=== PATIENT | female | born 1945 | race Hispanic/Latino ===

== ENCOUNTER 2018-06-27 18:52 | Observation (INO) | payer MEDICARE ==
[~2018-06-27] VITALS: Ht 149.9 cm; Wt 73.9 kg
[~2018-06-27 18:52] MED LIST: METFORMIN HCL500 M2 PO; PREVACHOL PO; SYNTHROID137 MCG PO; ZESTRIL20 MG PO
[2018-06-27] MEDS ORDERED: ASPIRIN 81 MG CHEW TAB PO ONE (19:15)
[2018-06-27 20:04] LABS: BASOPHILS % 0.4 % (0.0-1.0); EOSINOPHILS # (AUTO) 0.2 (0.0-0.4); HEMATOCRIT 32.7 % (34.2-44.1); HEMOGLOBIN 10.6 g/dL (12.0-16.0); LYMPHOCYTES # (AUTO) 2.7 (1.0-3.2); LYMPHOCYTES % 35.6 % (18.0-39.1); MEAN CORPUSCULAR HEMOGLOBIN 31.2 pg (28-32); MEAN CORPUSCULAR HGB CONC 32.4 g/dL (31-35); MEAN CORPUSCULAR VOLUME 96.2 fL (81-99); MONOCYTES # (AUTO) 0.6 (0.2-0.8); MONOCYTES % 8.5 % (4.4-11.3); NEUTROPHILS % 53.2 % (38.7-80.0); PLATELET COUNT 235 x10e3/uL (140-360); RED CELL DISTRIBUTION WIDTH 12.6 % (11.7-14.4)
[2018-06-27 20:09] LABS: INR 0.87; PROTHROMBIN TIME 12.6 seconds (11.9-14.5)
[2018-06-27 20:10] LABS: PARTIAL THROMBOPLASTIN TIME 31.3 seconds (23.8-35.5)
[2018-06-27 20:21] LABS: ALBUMIN 4.1 g/dL (3.5-5.0); ALBUMIN/GLOBULIN RATIO 1.1 (0.8-2.0); ANION GAP 17.6 mmol/L (8-16); CALCIUM 9.6 mg/dL (8.4-10.2); CREATININE, SERUM 2.08 mg/dL (0.57-1.11); MAGNESIUM 2.2 MG/DL (1.3-2.1); POTASSIUM 4.6 mmol/L (3.5-5.1)
--- NOTE | 2018-06-27 20:27 | Diagnostic Imaging Report ---
EXAM: CHEST SINGLE (PORTABLE), AP 1 view INDICATION: Chest pain, left chest and shoulder COMPARISON: PA and lateral view the chest December 07, 2015 FINDINGS: LINES/TUBES: None LUNGS: No consolidations or edema. PLEURA: No effusions or pneumothorax. HEART AND MEDIASTINUM: Normal size and contour. BONES AND SOFT TISSUES: No acute findings. IMPRESSION: No acute thoracic abnormality. Signed by: Dr. Day Willis M.D. on 06/27/2018 8:24 PM
[2018-06-27 20:44] LABS: CREATINE KINASE MB 2.5 ng/mL (0-5.0); THYROID STIMULATING HORMONE 0.773 uIU/mL (0.350-4.940)
[2018-06-27 20:52] LABS: CLARITY,URINE CLEAR (CLEAR); COLOR,URINE YELLOW (YELLOW)
[2018-06-27 20:53] LABS: BILIRUBIN,URINE NEGATIVE (NEGATIVE); KETONES,URINE NEGATIVE (NEGATIVE); LEUKOCYTE ESTERASE ,URINE NEGATIVE (NEGATIVE); NITRITE,URINE NEGATIVE (NEGATIVE); PROTEIN,URINE DIPSTICK NEGATIVE (NEGATIVE); URINE UROBILINOGEN 0.2 mg/dL (0.2 - 1)
[2018-06-27 20:58] LABS: RBC,URINE 0-5 /HPF (0-5); WBC,URINE (MAN) 0-5 /HPF (0-5)
[2018-06-27 20:59] LABS: BACTERIA,URINE FEW /HPF; EPITHELIAL CELLS,URINE FEW /LPF
[2018-06-27] MEDS ORDERED: ONDANSETRON HCL INJ 2 MG/ML VIAL IV PRN (23:30)
[2018-06-27] MEDS ORDERED: MORPHINE SULFATE 2 MG/ML SYR IV PRN (23:30)
[2018-06-27] MEDS ORDERED: NITROGLYCERIN 0.4 MG SUBL SL PRN (23:30)
[2018-06-27] MEDS ORDERED: METOPROLOL TARTRATE 25 MG TAB PO ONE (23:30)
[2018-06-27] MEDS ORDERED: DEXTROSE 50% SYRINGE 50 ML IV PRN (23:45)
[2018-06-28] MEDS ORDERED: FINASTERIDE5 MG PO (03:12)
[2018-06-28] MEDS ORDERED: SYNTHROID112 MCG PO (03:12)
[2018-06-28] MEDS ORDERED: OMEPRAZOLE40 MG PO (03:12)
[2018-06-28] MEDS ORDERED: LISINOPRIL20 MG PO (03:12)
[2018-06-28] MEDS ORDERED: ESCITALOPRAM OXA5 MG PO (03:12)
[2018-06-28] MEDS ORDERED: PRAVASTATIN SOD20 MG PO (03:12)
[2018-06-28] MEDS ORDERED: JANUVIA25 MG PO (03:12)
[2018-06-28 03:26] LABS: BASOPHILS % 0.4 % (0.0-1.0); EOSINOPHILS # (AUTO) 0.2 (0.0-0.4); EOSINOPHILS % 2.2 % (0.0-6.0); HEMATOCRIT 30.5 % (34.2-44.1); HEMOGLOBIN 9.8 g/dL (12.0-16.0); LYMPHOCYTES # (AUTO) 3.5 (1.0-3.2); LYMPHOCYTES % 42.6 % (18.0-39.1); MEAN CORPUSCULAR HEMOGLOBIN 31.1 pg (28-32); MEAN CORPUSCULAR HGB CONC 32.1 g/dL (31-35); MEAN CORPUSCULAR VOLUME 96.8 fL (81-99); MONOCYTES # (AUTO) 0.7 (0.2-0.8); MONOCYTES % 8.4 % (4.4-11.3); NEUTROPHILS # (AUTO) 3.8 (2.1-6.9); NEUTROPHILS % 46.2 % (38.7-80.0); PLATELET COUNT 214 x10e3/uL (140-360); RED BLOOD COUNT 3.15 x10e6/uL (3.6-5.1); RED CELL DISTRIBUTION WIDTH 12.6 % (11.7-14.4)
[2018-06-28 03:43] LABS: ANION GAP 16.6 mmol/L (8-16); CALCIUM 9.5 mg/dL (8.4-10.2); CHOL/HDL RATIO 2.9 (3.0-3.6); POTASSIUM 4.6 mmol/L (3.5-5.1)
[2018-06-28 04:01] LABS: CREATINE KINASE 131 IU/L (29-168)
[2018-06-28] MEDS: INSULIN REGULAR, HUMAN 100 UNIT/1 ML 3ML VIAL SQ SCH ×4 (08:00→20:39)
[2018-06-28] MEDS ORDERED: FAMOTIDINE 20 MG/2 ML VIAL IV SCH (09:00)
[2018-06-28] MEDS: ASPIRIN 81 MG ENTERIC COATED PO SCH (09:29)
[2018-06-28 11:08] VITALS: BP 113/63
[2018-06-28 11:36] VITALS: BP 113/63
[2018-06-28 11:37] VITALS: BP 113/63
[2018-06-28] MEDS ORDERED: REGADENOSON 0.4 MG/5 ML SYR IV ONE (11:38)
[2018-06-28 11:40] VITALS: BP 113/63
[2018-06-28 12:03] LABS: CREATINE KINASE 112 IU/L (29-168)
--- NOTE | 2018-06-28 14:39 | Consultation ---
DATE OF CONSULTATION: June 28, 2018 CARDIOLOGY CONSULTATION ROOM: ER. ATTENDING PHYSICIAN: Dr. Pham. Thank you so much for asking me to see this nice lady in consultation. HPI: Ms. Lomeli is a pleasant [id number] with hypertension and diabetes, who presented to the emergency room overnight with a complaint of substernal chest discomfort. Patient reports that this has been an intermittent "sticking" discomfort, lasting only a few seconds at a time, but seems to be getting worse over the last couple of days. She is particularly worried about this as one of her sons of myocardial infarction at age 46 earlier this year. PAST MEDICAL HISTORY: Significant for diabetes and hypertension. She reports that she had been taking medications for both diabetes and hypertension since about 2012. She had previously been diagnosed with diabetes and hypertension, but was able to discontinue medications after weight loss but apparently regained the weight. MEDICATIONS: Please see the chart. SURGICAL HISTORY: She admits only previous knee arthroscopes. No other surgeries. No hospitalizations. PERSONAL AND SOCIAL HISTORY: She does not smoke. FAMILY HISTORY: Most importantly her son dying of myocardial infarction earlier this year. PHYSICAL EXAMINATION GENERAL: At this time shows a pleasant woman, who is alert and responsive, 4 feet 11 inches tall and weighing 173 pounds. VITAL SIGNS: Current blood pressure 110/77, pulse 70 and regular. HEAD, EYES, EARS, NOSE, AND THROAT: Relatively unremarkable. NECK: No jugular venous distention and no murmurs. THORAX: Chest wall is nontender to palpation. HEART: Sounds S1, S2 are equal. No murmurs. LUNGS: Clear. ABDOMEN: Protuberant. EXTREMITIES: No cyanosis, clubbing, or edema. Shoulders both nontender to rotation. IMAGING: Chest x-ray is unremarkable. LABORATORY DATA: Troponins are negative x2. Lipid profile shows cholesterol 160, HDL 55, LDL 84. BNP is 20. ASSESSMENT 1. Atypical chest discomfort, etiology not clear. 2. Type 2 adult-onset diabetes. 3. Hypertension. 4. Family history of myocardial infarction with son having myocardial infarction earlier this year and . 5. Anemia, previously treated, but apparently recurring. 6. Renal insufficiency with BUN 45 and creatinine 2.0. PLAN: She has already received an aspirin. We will monitor closely and check echo and Cardiolite and further management based on clinical course. Thank you for asking me to see her in consultation. Job#: [id number] LPA cc:DR. JOANNE PHAM
[2018-06-28] MEDS ORDERED: OMEPRAZOLE 20 MG CAP PO SCH (17:00)
--- NOTE | 2018-06-28 17:02 | History and Physical ---
HISTORY OF PRESENT ILLNESS: Ms. Lomeli is a pleasant 72-year-old lady, a patient of Dr. Ayon. She has past medical history significant for type 2 diabetes mellitus, hypertension, hypothyroidism, and chronic kidney disease. Patient's son a few months ago and she has been under an increased amount of stress, and she was in her usual state of health until 3 days ago when she began having chest discomfort. She described the discomfort as a sharp stabbing type of pain that might last for several minutes and can happen several times a day. It is not related to exertion and has radiation to the left arm. She denies any associated symptoms such as lightheadedness, diaphoresis, or near-fainting sensation. She has been admitted for further evaluation, and her first set of cardiac enzymes is negative. PAST MEDICAL HISTORY: As mentioned before, hypertension, type 2 diabetes mellitus, hyperlipidemia, hypothyroidism, and chronic kidney disease which is stage 3. SURGICAL HISTORY: Negative. REVIEW OF ALLERGIES: SHE HAS NO SIGNIFICANT DRUG ALLERGIES EXCEPT FOR THE ONES NOTED IN HER CHART WHICH IS CEPHALEXIN, IODINE, AND NAPROSYN. CURRENT MEDICATIONS: Include; 1. Levothyroxine 112 mcg daily. 2. Pravastatin 20 mg a day. 3. Omeprazole 40 mg daily. 4. Lisinopril 20 mg a day. 5. Citalopram 5 mg daily. 6. Aspirin 81 mg daily. 7. She takes Januvia 25 mg daily. 8. Tradjenta 5 mg a day. SOCIAL HISTORY: Patient is . She is living with her family. She never smoked or drank. FAMILY HISTORY: A son, as mentioned before, from an [place] at 46 years of age. PHYSICAL EXAMINATION GENERAL: She is awake, alert, oriented x3. She is not in any acute distress. VITAL SIGNS: Blood pressure is 113/65, pulse rate is 67, and respirations 18. Temperature is normal. SKIN: Dry and warm. Turgor is fair. HEENT: Pupils are round, equal, and reactive to light. Oral mucosa is moist. There are no oral lesions. NECK: Supple. There is no increased JVD. CHEST: Nontraumatic. LUNGS: Reveal normal bilateral respiratory sounds. HEART: S1, S2. Regular rhythm. No gallops or murmurs. ABDOMEN: Bowel sounds positive. Soft, nontender. EXTREMITIES: There is no edema. NEUROLOGICAL: She is awake, alert, oriented x3. There are no focal sensory or motor deficits. ASSESSMENT 1. Chest pain, this seems to be atypical. 2. Rule out possibility of peptic ulcer disease. 3. Type 2 diabetes mellitus, well controlled. 4. Hypertension, controlled. 5. Hypothyroidism. PLAN: To admit her to the hospital and perform serial cardiac enzymes. Telemetry. Due to her significant risk factors, she will be evaluated by cardiology with a nuclear stress test and echocardiogram. Patient's hemoglobin level is lower than her baseline, and there has been increase in her BUN. At this time, it is also important to rule out any evidence of peptic ulcer disease. Job#: [id number] LPA
[2018-06-28] MEDS: PANTOPRAZOLE SOD 40 MG TABEC PO SCH (17:43)
[2018-06-28 20:12] VITALS: BP 120/56
[2018-06-28 20:13] VITALS: BP 120/56
[2018-06-28 20:33] LABS: CREATINE KINASE 91 IU/L (29-168)
[2018-06-28] MEDS ORDERED: PRAVASTATIN 20 MG TAB PO SCH (21:00)
[2018-06-29 00:06] VITALS: BP 135/58
[2018-06-29 05:11] VITALS: BP 114/54
[2018-06-29 05:11] LABS: BASOPHILS % 0.4 % (0.0-1.0); EOSINOPHILS # (AUTO) 0.2 (0.0-0.4); EOSINOPHILS % 2.2 % (0.0-6.0); HEMATOCRIT 30.1 % (34.2-44.1); HEMOGLOBIN 9.8 g/dL (12.0-16.0); LYMPHOCYTES # (AUTO) 3.2 (1.0-3.2); LYMPHOCYTES % 41.4 % (18.0-39.1); MEAN CORPUSCULAR HEMOGLOBIN 31.3 pg (28-32); MEAN CORPUSCULAR HGB CONC 32.6 g/dL (31-35); MEAN CORPUSCULAR VOLUME 96.2 fL (81-99); MONOCYTES # (AUTO) 0.7 (0.2-0.8); MONOCYTES % 9.2 % (4.4-11.3); NEUTROPHILS # (AUTO) 3.6 (2.1-6.9); NEUTROPHILS % 46.5 % (38.7-80.0); PLATELET COUNT 217 x10e3/uL (140-360); RED BLOOD COUNT 3.13 x10e6/uL (3.6-5.1); RED CELL DISTRIBUTION WIDTH 12.8 % (11.7-14.4)
[2018-06-29 05:33] LABS: ANION GAP 17.3 mmol/L (8-16); CALCIUM 9.3 mg/dL (8.4-10.2); CREATININE, SERUM 2.01 mg/dL (0.57-1.11); POTASSIUM 5.3 mmol/L (3.5-5.1)
[2018-06-29 05:59] LABS: FERRITIN 55.35 ng/mL (4.63-204.00)
[2018-06-29] MEDS ORDERED: LEVOTHYROXINE SODIUM 112 MCG TAB PO SCH (06:00)
[2018-06-29] MEDS: INSULIN REGULAR, HUMAN 100 UNIT/1 ML 3ML VIAL SQ SCH ×2 (07:30→11:30)
[2018-06-29 08:00] VITALS: BP 111/55
[2018-06-29 08:43] VITALS: BP 111/55
[2018-06-29] MEDS ORDERED: ESCITALOPRAM OXALATE 10 MG TAB PO SCH (09:00)
[2018-06-29] MEDS: PANTOPRAZOLE SOD 40 MG TABEC PO SCH (09:07)
[2018-06-29] MEDS: ASPIRIN 81 MG ENTERIC COATED PO SCH (09:07)
[2018-06-29] MEDS ORDERED: FERROUS SULFAT325 MG PO (09:42)
--- NOTE | 2018-06-29 10:17 | Cardiology Report ---
DATE OF STUDY: June 28, 2018 LEXISCAN MYOVIEW ATTENDING PHYSICIAN: Dr. Arce Patient had resting perfusion images after an injection of 10.8 mCi of technetium-99m Myoview. Later due to inability to exercise, patient was given 0.4 mg of Lexiscan intravenously and shortly afterwards 29.1 mCi of technetium-99m Myoview. Perfusion images were taken by rotational tomography. Comparison of resting and Lexiscan stress images shows no significant evidence of any perfusion defect neither fixed or reversible. There is no quantitative analysis performed. Additionally, gated wall motion images were obtained, and left ventricular function is hyperdynamic with a calculated ejection fraction of 85%. FINAL IMPRESSION: 1. Normal Lexiscan Myoview for perfusion. 2. Normal left ventricular function with calculated ejection fraction 85%. Job#: [id number]
--- NOTE | 2018-06-29 13:48 | Discharge Summary ---
DISCHARGE DIAGNOSES 1. Noncardiac chest pain, suspect gastrointestinal source. Patient has refused further workup. 2. Chronic kidney disease, stage 4, with borderline hyperkalemia. 3. Anemia of chronic disease. 4. Type-2 diabetes mellitus, controlled. 5. Hypertension. HISTORY OF PRESENT ILLNESS: Ms. Lomeli is a pleasant, 72-year-old lady, a patient of Dr. Ayon who presented to this hospital with complaints of sharp, stabbing chest discomfort lasting for several minutes, happening several times a day, that was not related to exertion. There was some radiation to the left arm, which prompted concern about possible heart source. At the time of admission, she was found to have a low hemoglobin level at 9.8. Her BUN was 50, and creatinine was 2.1. Patient is known to have chronic kidney disease, but she has not seen renal. Compared to her preadmission levels, the hemoglobin is certainly down, which gives credibility to the possibility of upper GI bleeding. A GI consult was requested. Patient was seen by Dr. Meño Bass, but she refused any further workup. Also, she was seen by cardiology due to her several risk factors for CAD. She underwent a 2D echocardiogram, which is significant only for left ventricular hypertrophy, which is concentric, with normal left ventricular ejection fraction. The nuclear stress test results are pending. The patient has requested discharge. She will be discharged home on added iron supplementation. She has been asked to follow up with her PCP. She will need outpatient evaluation by nephrology and GI. SUPA PHAM MD Job#: [id number]
--- OUTSIDE RECORDS SUMMARY | 2018-06-29 14:09 | XMS REPORT | CCD ---
Author Author Auto Generated Organization [facility] Address Unknown Phone Unavailable Care Team Providers Care Editing Computer Publisher Name Role Phone Fortunato Fraire CP Unavailable Allergies, Adverse Reactions, Alerts Substance Reaction Status Keflex Active naproxyn-pseudoephedrine Active Medications Medication Instructions Start Date End Date Status morphine Sulfate 4 mg, 2 mL, Route: IM, Drug form: 07/06/2012 07/06/2012 Completed INJ, ONCE, Dosing Weight 75.455, kg, Start date: 07/06/12 22:11:00, Stop date: 07/06/12 22:11:00 Gay 5/325 oral 1 tab, PO, Q4H, PRN, 15 tab, for 07/07/2012 Ordered tablet pain, Substitution Allowed, Maintenance, TAB Vital Signs Most recent to oldest [Reference Range]: 1 Height 149.86 cm (07/06/2012 19:51:00) Weight 75.455 kg (07/06/2012 19:51:00)
--- OUTSIDE RECORDS SUMMARY | 2018-06-29 14:09 | XMS REPORT | CCD ---
Author Author Auto Generated Organization [facility] Address Unknown Phone Unavailable Care Team Providers Care Plywood Layup Line Back Feeder Name Role Phone Mark Jones CP Allergies, Adverse Reactions, Alerts Substance Reaction Status Keflex Active naproxyn-pseudoephedrine Active
--- OUTSIDE RECORDS SUMMARY | 2018-06-29 14:09 | XMS REPORT ---
Author Author Waleska Fleming [facility] e[employer] Address Unknown Phone Unavailable Care Team Providers Care Emergency Department Coordinator Name Role Phone Waleska Fleming CP Unavailable Allergies, Adverse Reactions, Alerts Substance Reaction Event Type Naproxen anaphylaxis Drug Allergy Keflex anaphylaxis Drug Allergy Fish Oil hives Drug Allergy Encounters Encounter Location Date [employer] Work [facility] November 14, 2013 Problems Problem Type Condition ICD-9 Code Onset Dates Condition Status Problem Hypothyroid 244.9 Active Assessment Allergic reaction caused by a drug 995.29 Active Problem Hypertension 401.9 Active Assessment Left arm pain 729.5 Active Medications Medication Code System Code Instructions Start Date End Date Status Dosage Oscal 500/200 D-3 [facility] [address]-32 500-200 MG-UNIT Orally Once a day Active 1 tablet with food Vitamin D High Potency [facility] 66180-04675 1000 UNIT Orally Once a day Active 2capsule Multivitamins [facility] 09763-76340 Orally Active as directed Centrum Silver Ultra Womens [facility] [address]-04 Orally Active as directed Zestril [facility] [address]-89 20 mg Orally Once a day Active 1 tablet Synthroid [facility] [address]-44 137 MCG Orally Once a day Active 1 tablet on an empty stomach in the morning Social History Social History Element Qualifiers Date Reported children . 6 November 14, 2013 Tobacco Use: . Are you a: never smoker November 14, 2013 Marital Status: . / YAZAN November 14, 2013 Do you drink alcohol? . Status: Yes, Type: Liquor, How often? Rarely, How much? Socially November 14, 2013 Occupation: . [employer] / [employer], Retired November 14, 2013 Family history Qualifier Description Comment Date Reported Maternal Grandmother diabetes mellitus, heart disease November 14, 2013 Paternal Grandmother Comment not available November 14, 2013 Father Comment not available November 14, 2013 Maternal Grandfather Comment not available November 14, 2013 Mother Comment not available November 14, 2013 Paternal Grandfather Comment not available November 14, 2013 Vital Signs Date/Time: November 14, 2013 Weight 69 lbs Height 177 inches Temperature 98.1 F Cardiac Monitoring Heart Rate 68 Beats per Minute Blood Pressure Diastolic 72 mm Hg Blood Pressure Systolic 128 mm Hg Results Shoulder 2 view- Left Xray Summary Purpose eClinical[employer] Submission
--- OUTSIDE RECORDS SUMMARY | 2018-06-29 14:09 | XMS REPORT | Summary of Care ---
Author Organization Unknown Address Unknown Phone Unavailable Encounter HQ Dorothea_indu([facility]) [id number] Date(s): 11/30/13 - 12/29/13 [facility] Discharge Disposition: Home Physician Attending: Waleska Atkinson Reason for Visit NEEDLE STICK LEFT ARM Problem List No data available for this section Allergies, Adverse Reactions, Alerts Substance Reaction Severity Status Keflex Active naproxyn-pseudoephedrine Active Medications No data available for this section Medications Administered During Your Visit No data available for this section Immunizations No data available for this section
--- OUTSIDE RECORDS SUMMARY | 2018-06-29 14:09 | XMS REPORT | Summary of Care ---
Author Author General acute hospital Address Unknown Phone Unavailable Encounter [facility]([facility]) [id number] Date(s): 03/19/17 - 04/17/17 [facility] Discharge Disposition: Home or Self Care Attending Physician: Adonis Lim MD Vital Signs No data available for this section Problem List Condition Effective Dates Status Health Status Informant Acute sinusitis1 06/28/13 Resolved Benign essential 05/19/13 Active hypertension2, 3 Gastroesophageal 05/19/13 Active reflux disease4, 5 Hypothyroidism6, 7 05/19/13 Active Pain in lower limb8, 05/19/13 Active 9 Type 2 diabetes 05/19/13 Active gprhzope94, 11 1Data migrated from [employer] on 03/30/15. 2Data migrated from [employer] on 02/13/15. 3Data migrated from [employer] on 02/13/15. 4Data migrated from [employer] on 02/13/15. 5Data migrated from [employer] on 02/13/15. 6Data migrated from [employer] on 02/13/15. 7Data migrated from [employer] on 02/13/15. 8Data migrated from [employer] on 02/13/15. 9Data migrated from [employer] on 02/13/15. 10Data migrated from [employer] on 02/13/15. 11Data migrated from [employer] on 02/13/15. Allergies, Adverse Reactions, Alerts Substance Reaction Severity Status cephalexin1 Active Keflex Active naproxen2 Active naproxyn-pseudoephedrine Active 1Data migrated from [employer] on 01/11/15. Originally documented as KEFLEX. Throat swells and itching 2Data migrated from [employer] on 01/11/15. Originally documented as NAPROSYN. Throat swells, itching all over, and SOB Medications No data available for this section Results No data available for this section Immunizations Given and Recorded Vaccine Date Status Refusal Reason Hx influenza vaccine-unspecified1 07/27/13 Given 1Result Comment: done at work. Migrated from [facility] ; Data migrated from [employer] on 10/16/2015. Procedures No data available for this section Social History No data available for this section Assessment and Plan No data available for this section
--- OUTSIDE RECORDS SUMMARY | 2018-06-29 14:09 | XMS REPORT | Continuity of Care Document ---
Author Author Radha gillette Organization Interface Address Unknown Phone Unavailable Problems Problem Status Onset Date Classification Date Reported Comments Source RIGHT HAND Active 03/13/2017 [facility] M79.644 - PAIN IN RIGHT FINGER(S) Active 01/15/2017 [facility] 729.5 LEG PAIN / 250.00 DIABETES Active 07/14/2013 [facility] Acute sinusitis<sup>1</sup> Resolved 06/28/2013 Problem 04/20/2017 Data migrated from GE [employer]city on 03/30/15. [facility] [place] Benign essential hypertension<sup>2, 3</sup> Active 05/19/2013 Problem 04/20/2017 Data migrated from GE [employer] on 02/13/15. [facility] [place] Gastroesophageal reflux disease<sup>4, 5</sup> Active 05/19/2013 Problem 04/20/2017 Data migrated from [employer] on 02/13/15. [facility] [place] Hypothyroidism<sup>6, 7</sup> Active 05/19/2013 Problem 04/20/2017 Data migrated from [employer] on 02/13/15. [facility] [place] Pain in lower limb<sup>8, 9</sup> Active 05/19/2013 Problem 04/20/2017 Data migrated from [employer] on 02/13/15. [facility] [place] Type 2 diabetes mellitus<sup>10, 11</sup> Active 05/19/2013 Problem 04/20/2017 Data migrated from [employer] on 02/13/15. [facility] [place] 719.9 Active 07/14/2012 [facility] HIP PAIN Active 07/06/2012 [facility] LOWER LEG PAIN,RT AND LEFT SIDE Active 06/05/[address] [facility] Hypothyroid Active Problem 12/30/2013 [facility] Allergic reaction caused by a drug Active Diagnosis 12/30/2013 [facility] Hypertension Active Problem 12/30/2013 [facility] Left arm pain Active Diagnosis 12/30/2013 [facility] RT KNEE Active [facility] NEEDLE STICK LEFT ARM Active [facility] Medications Medication Details Route Status Patient Instructions Ordering Provider Order Date Source Jackson 5/325 oral tablet 1 tab, PO, Q4H, PRN, 15 tab, for pain, Substitution Allowed, Maintenance, TAB PO Active [facility] 07/07/2012 [facility] morphine Sulfate 4 mg, 2 mL, Route: IM, Drug form: INJ, ONCE, Dosing Weight 75.455, kg, Start date: 07/06/12 22:11:00, Stop date: 07/06/12 22:11:00 IM No Longer Active [facility] 07/07/2012 [facility] Oscal 500/200 D-3 1 tablet with food Orally Active 500-200 MG- UNIT Orally Once a day [facility] Vitamin D High Potency 2capsule Orally Active 1000 UNIT Orally Once a day [facility] Multivitamins as directed Orally Active Orally [facility] Centrum Silver Ultra Womens as directed Orally Active Orally [facility] Zestril 1 tablet Orally Active 20 mg Orally Once a day [facility] Synthroid 1 tablet on an empty stomach in the morning Orally Active 137 MCG Orally Once a day [facility] Allergies, Adverse Reactions, Alerts Substance Category Reaction Severity Reaction type Status Date Reported Comments Source cephalexin<sup>1</sup> Assertion Drug allergy Active 05/19/2013 Data migrated from [employer] on 01/11/15. Originally documented as KEFLEX. Throat swells and itching [facility] naproxen<sup>2</sup> Assertion Drug allergy Active 05/19/2013 Data migrated from [employer] on 01/11/15. Originally documented as NAPROSYN. Throat swells, itching all over, and SOB [facility] Naproxen Adverse Reaction anaphylaxis Adverse Reaction Active 12/20/2013 [facility] Fish Oil Adverse Reaction hives Adverse Reaction Active 12/20/2013 [facility] Keflex Assertion Drug allergy Active [facility] [place] naproxyn-pseudoephedrine Assertion Drug allergy [facility] Immunizations Immunization Date Given Site Status Last Updated Comments Source Hx influenza vaccine-unspecified<sup>1</sup> 07/27/2013 completed GE Result Comment: done at work. Migrated from OBS ; Data migrated from [employer] on 10/16/2015. [facility] [place] Results Order Name Results Value Reference Range Date Interpretation Comments Source Finger 3 views DX Finger 3 views DX EXAM: XR RIGHT FINGER 3 VIEWS DATE: 01/15/2017 11:58 AM CDT INDICATION: Pain in right finger(s) COMPARISON: None TECHNIQUE: A single PA view of the hand, oblique and lateral views of the index finger. FINDINGS: There is soft tissue swelling about the index finger without underlying fracture or dislocation identified. Small detached osteophytes versus capsular calcification about the index finger DIP is noted. Small intraosseous cyst at the volar base of the middle phalanx index finger. Moderate to severe arthritic changes of the index and long finger DIP joints and to a lesser degree the PIP joints. IMPRESSION: Soft tissue swelling about the right index finger without acute fracture or dislocation. 01/15/2017 - - This report was dictated by a Asset Management Coordinator/Fellow. I have personally reviewed the images as well as the Resident's interpretation and agree with the findings. Read by: Maximo Morrow Resident: Maximo Morrow (kenia Dictated Date/time: 01/15/17 12:12 Electronically Signed by: Jason Chávez MD 01/15/17 17:37 FINAL REPORT [facility] CHEMISTRY CO2 29 meq/L 24 - 32 06/06/[address] [facility] CHEMISTRY Calcium Lvl 9.4 mg/dL 8.5 - 10.5 06/06/[address] [facility] CHEMISTRY AGAP 9.5 meq/L 10.0 - 20.0 06/06/[address] [facility] CHEMISTRY Glucose Lvl 93 mg/dL 70 - 99 06/06/2012 Normal 1Interpretive Data: Adult reference range values reflect the clinical guidelines of the [place] [employer]. [facility] CHEMISTRY BUN 36 mg/dL 7 - 22 06/06/2012 [facility] CHEMISTRY Chloride Lvl 105 meq/L 95 - 109 06/06/[address] [facility] CHEMISTRY Potassium Lvl 4.5 meq/L 3.5 - 5.1 06/06/[address] [facility] CHEMISTRY Sodium Lvl 139 meq/L 135 - 145 06/06/[address] [facility] CHEMISTRY Creatinine Lvl 1.6 mg/dL 0.5 - 1.4 06/06/2012 [facility] Vital Signs Vital Sign Value Date Comments Source Weight 173 12/20/2013 [facility] Height 177 12/20/2013 [facility] Heart Rate 68 12/20/2013 [facility] Diastolic (mm Hg) 80 12/20/2013 [facility] Systolic (mm Hg) 130 12/20/2013 [facility] Weight 69 11/14/2013 [facility] Height 177 11/14/2013 [facility] Temperature Oral (F) 98.1 F 11/14/2013 [facility] Heart Rate 68 11/14/2013 [facility] Diastolic (mm Hg) 72 11/14/2013 [facility] Systolic (mm Hg) 128 11/14/2013 [facility] Weight 78.636 07/20/2013 [facility] Height 149.86 cm 07/20/2013 [facility] Weight 75.455 07/07/2012 [facility] Height 149.86 cm 07/07/2012 [facility] Height 149.86 cm 06/06/[address] [facility] Weight 76.818 06/06/[address] [facility] Encounters Location Location Details Encounter Type Encounter Number Reason For Visit Attending Provider ADM Date DC Date Status Source [facility] Emergency [id number] MICHELE BARRY 06/05/2012 06/05/2012 Active [facility] Emergency [id number] ENRICO WEBER 07/06/2012 07/06/2012 Active [facility] Outpatient [id number] 719.9 BENI CASTRO 07/21/2012 Active [facility] TH [id number] RT [facility] BENI CASTRO 08/31/2012 Active [facility] Outpatient [id number] 729.5 LEG PAIN / 250.00 DIABETES RIGO PYLEO 07/20/2013 Active [facility] [employer] Work Injury [id number] 11/14/2013 11/14/2013 [facility] [employer] Work Injury [id number] 11/14/2013 11/14/2013 [facility] Patients [id number] Waleska AlJevon 11/30/2013 12/30/2013 [facility] FOLLOW-UP [id number] 12/20/2013 12/20/2013 [facility] [place] [facility] [id number] Jonah Cabrera 01/15/2017 01/16/2017 [facility] Patients [id number] Adonis Lim 03/19/2017 04/18/2017 [facility] Procedures Procedure Code Date Perfomer Comments Source
--- OUTSIDE RECORDS SUMMARY | 2018-06-29 14:09 | XMS REPORT | Summary of Care ---
Author Author [facility] Outpatient Imaging [facility] Outpatient Imaging [facility] Address Unknown Phone Unavailable Encounter HQ Keaton(FIN) [id number] Date(s): 01/15/17 - 01/15/17 [facility] Outpatient Imaging [facility] [address] [facility], [address] [place] [phone] Discharge Disposition: Home or Self Care Attending Physician: Jonah Cabrera MD Vital Signs No data available for this section Problem List Condition Effective Dates Status Health Status Informant Acute sinusitis1 06/28/13 Resolved Benign essential 05/19/13 Active hypertension2, 3 Gastroesophageal 05/19/13 Active reflux disease4, 5 Hypothyroidism6, 7 05/19/13 Active Pain in lower limb8, 05/19/13 Active 9 Type 2 diabetes 05/19/13 Active , 11 1Data migrated from GE Centricity on [...] Throat swells and itching 2Data migrated from [employer] on 01/11/15. Originally documented as NAPROSYN. Throat swells, itching all over, and SOB Medications No data available for this section Results No data available for this section Immunizations Given and Recorded Vaccine Date Status Refusal Reason Hx influenza vaccine-unspecified1 07/27/13 Given 1Result Comment: done at work. Migrated from OBS ; Data migrated from [employer] on 10/16/2015. Procedures No data available for this section Social History No data available for this section Assessment and Plan No data available for this section
--- OUTSIDE RECORDS SUMMARY | 2018-06-29 14:09 | XMS REPORT | CCD ---
Author Author Auto Generated Organization [facility] Address Unknown Phone Unavailable Care Team Providers Care Medical Assistant Name Role Phone Dolly Lomeli RP Allergies, Adverse Reactions, Alerts Substance Reaction Status Keflex Active naproxyn-pseudoephedrine Active Vital Signs Most recent to oldest [Reference Range]: 1 Height 149.86 cm (07/20/2013 09:58:00) Weight 78.636 kg (07/20/2013 09:58:00)
--- OUTSIDE RECORDS SUMMARY | 2018-06-29 14:09 | XMS REPORT ---
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 [facility] November 14, 2013 FOLLOW-UP [facility] December 20, 2013 Problems Problem Type Condition ICD-9 Code Onset Dates Condition Status Problem Hypothyroid 244.9 Active Assessment Allergic reaction caused by a drug 995.29 Active Problem Hypertension 401.9 Active Assessment Left arm pain 729.5 Active Medications Medication Code System Code Instructions Start Date End Date Status Dosage Synthroid [facility] [address]-11 137 MCG Orally Once a day Active 1 tablet on an empty stomach in the morning Vitamin D High Potency [facility] [address] 1000 UNIT Orally Once a day Active 2capsule Centrum Silver Ultra Womens [facility] [address]-07 Orally Active as directed Zestril [facility] [address]-78 20 mg Orally Once a day Active 1 tablet Oscal 500/200 D-3 [facility] [address]-12 500-200 MG-UNIT Orally Once a day Active 1 tablet with food Social History Social History Element Qualifiers Date Reported children . 6 December 20, 2013 Tobacco Use: . Are you a: never smoker December 20, 2013 Marital Status: . / YAZAN December 20, 2013 Do you drink alcohol? . Status: Yes, Type: Liquor, How often? Rarely, How much? Socially December 20, 2013 Occupation: . [employer] / [employer], Retired December 20, 2013 Family history Qualifier Description Comment Date Reported Maternal Grandmother diabetes mellitus, heart disease December 20, 2013 Paternal Grandmother Comment not available December 20, 2013 Father Comment not available December 20, 2013 Maternal Grandfather Comment not available December 20, 2013 Mother Comment not available December 20, 2013 Paternal Grandfather Comment not available December 20, 2013 Vital Signs Date/Time: December 20, 2013 Weight 173 lbs Height 177 inches Cardiac Monitoring Heart Rate 68 Beats per Minute Blood Pressure Diastolic 80 mm Hg Blood Pressure Systolic 130 mm Hg Summary Purpose eClinicalWorks Submission
--- OUTSIDE RECORDS SUMMARY | 2018-06-29 14:09 | XMS REPORT | CCD ---
Author Author Auto Generated Organization [facility] Address Unknown Phone Unavailable Care Team Providers Care Culinary Assistant Name Role Phone Mark Jones RP Allergies, Adverse Reactions, Alerts Substance Reaction Status Keflex Active naproxyn-pseudoephedrine Active
--- OUTSIDE RECORDS SUMMARY | 2018-06-29 14:09 | XMS REPORT | CCD ---
Author Author Auto Generated Organization [facility] Address Unknown Phone Unavailable Care Team Providers Care Federal Appellate Clerk Name Role Phone Lj Han CP Allergies, Adverse Reactions, Alerts Substance Reaction Status Keflex Active naproxyn-pseudoephedrine Active Vital Signs Most recent to oldest [Reference Range]: 1 Height 149.86 cm (06/05/2012 19:35:00) Weight 76.818 kg (06/05/2012 19:35:00) Results CHEMISTRY Most recent to oldest [Reference Range]: 1 Sodium Lvl [135-145 mEq/L] 139 mEq/L (06/05/2012 22:20:00) Potassium Lvl [3.5-5.1 mEq/L] 4.5 mEq/L (06/05/2012 22:20:00) Chloride Lvl [95-109 mEq/L] 105 mEq/L (06/05/2012 22:20:00) CO2 [24-32 mEq/L] 29 mEq/L (06/05/2012 22:20:00) AGAP [10.0-20.0 mEq/L] 9.5 mEq/L *LOW* (06/05/2012 22:20:00) Creatinine Lvl [0.5-1.4 mg/dL] 1.6 mg/dL *HI* (06/05/2012 22:20:00) BUN [7-22 mg/dL] 36 mg/dL *HI* (06/05/2012 22:20:00) Glucose Lvl [70-99 mg/dL] 93 mg/dL 1 (06/05/2012 22:20:00) Calcium Lvl [8.5-10.5 mg/dL] 9.4 mg/dL (06/05/2012 22:20:00) 1Interpretive Data: Adult reference range values reflect the clinical guidelines of the [place] [employer].
--- OUTSIDE RECORDS SUMMARY | 2018-06-29 14:10 | XMS REPORT ---
Author Author [facility] Address Unknown Phone Unavailable Care Team Providers Care Motor Assembler Name Role Phone SUPA ARCE Unavailable Unavailable Problems This patient has no known problems. Allergies, Adverse Reactions, Alerts This patient has no known allergies or adverse reactions. Medications This patient has no known medications. Results Test Description Test Time Test Comments Text Results Atomic Results Result Comments Stress Test - Treadmill ONLY 2018-06-29 09:46:00 [place] [address] Patient Name : RIGO CALIX MR #: [id number] : 1945 Age/Sex: 72/F Adm Physician : SUPA ARCE MD Admit Date : 06/27/18 Location : [facility] Room/Bed : [place] [address] REPORT: Cardiology Report DATE OF STUDY: June 28, 2018 LEXISCAN MYOVIEW ATTENDING PHYSICIAN: Dr. Arce Patient had resting perfusion images after an injection of 10.8 mCi of technetium-99m Myoview. Later due to inability to exercise, patient was given 0.4 mg of Lexiscan intravenously and shortly afterwards 29.1 mCi of technetium-99m Myoview. Perfusion images were taken by rotational tomography. Comparison of resting and Lexiscan stress images shows no significant evidence of any perfusion defect neither fixed or reversible. There is no quantitative analysis performed. Additionally, gated wall motion images were obtained, and left ventricular function is hyperdynamic with a calculated ejection fraction of 85%. FINAL IMPRESSION: 1. Normal Lexiscan Myoview for perfusion. 2. Normal left ventricular function with calculated ejection fraction 85%. Job#: [id number] Signature Date Dictated By: KANWAL ZAVALA MD Transcribed By: COLE on 06/29/18 <Electronically signed by KANWAL ZAVALA MD><<Signature on File>>06/29/18 1037 COPY TO: CHEST SINGLE (PORTABLE) 2018-06-27 20:21:00 [place] [address] Patient Name: RIGO CALIX MR #: [id number] : 1945 Age/Sex: 72/F Req #: [id number] Adm Physician: Ordered by: DAWSON BRAVO GOLF BALL COVER TREATER Report #: [id number] Location: ER Room/Bed: Procedure: [id number] DX/CHEST SINGLE (PORTABLE) Exam Date: 06/27/18 Exam Time: 2008 REPORT STATUS: Signed EXAM: CHEST SINGLE (PORTABLE), AP 1 view INDICATION: Chest pain, left chest and shoulder COMPARISON: PA and lateral view the chest December 07, 2015 FINDINGS: LINES/TUBES: None LUNGS: No consolidations or edema. PLEURA: No effusions or pneumothorax. HEART AND MEDIASTINUM: Normal size and contour. BONES AND SOFT TISSUES: No acute findings. IMPRESSION: No acute thoracic abnormality. Signed by: Dr. Jhonatan Willis M.D. on 06/27/2018 8:24 PM Dictated By: JHONATAN WILLIS MD 23 Transcribed By: TANNA on 06/27/182023 COPY TO: DAWSON BRAVO GOLF BALL COVER TREATER
== END 2018-06-29 12:13 | disposition home or self-care (01) ==
LOC: ER 18:52 → ERHOLD 23:39 → IMCU 06-28 11:24
PROVIDERS: ADMIT Internal Medicine; ATTEND Internal Medicine
DX: R07.89 Other chest pain (principal); E11.22 Type 2 diabetes mellitus with diabetic chronic kidney disease; I12.9 Hypertensive chronic kidney disease with stage 1 through stage 4 chronic kidney disease, or unspecified chronic kidney disease; N18.4 Chronic kidney disease, stage 4 (severe); Z79.84 Long term (current) use of oral hypoglycemic drugs; Z79.82 Long term (current) use of aspirin; D63.1 Anemia in chronic kidney disease; E78.5 Hyperlipidemia, unspecified; E03.9 Hypothyroidism, unspecified; K21.9 Gastro-esophageal reflux disease without esophagitis; Z82.49 Family history of ischemic heart disease and other diseases of the circulatory system; Z28.21 Immunization not carried out because of patient refusal; Z88.6 Allergy status to analgesic agent; Z88.1 Allergy status to other antibiotic agents; Z91.041 Radiographic dye allergy status
CPT/HCPCS: 36415 ×3; 71045; 78452; 80048 ×2; 80053; 80061; 81001; 82550 ×2; 82553 ×2; 82607; 82728; 82948 ×2; 83540; 83690; 83735; 83880; 84443; 84466; 84484 ×2; 85025 ×3; 85610; 85730; 87086; 87186; 93005; 93017; 93306; 94760; 99284; A9502; G0378 ×3; S0164 ×2

== ENCOUNTER 2023-02-15 18:40 | Emergency (ER) | payer MEDICARE ==
[~2023-02-15] VITALS: Ht 149.9 cm; Wt 73.9 kg
[~2023-02-15 18:40] MED LIST changes: +ESCITALOPRAM OXA5 MG PO; +FERROUS SULFAT325 MG PO; +FINASTERIDE5 MG PO; +JANUVIA25 MG PO; +LISINOPRIL20 MG PO; +OMEPRAZOLE40 MG PO; +PRAVASTATIN SOD20 MG PO; +SYNTHROID112 MCG PO
[2023-02-15 19:34] VITALS: BP 188/98; PULSE 84; RESP 18; TEMP 97.9; O2SAT 99
== END 2023-02-15 19:34 | disposition home or self-care (01) ==
LOC: FSED 19:09
DX: R25.2 Cramp and spasm (principal); I10 Essential (primary) hypertension; E11.9 Type 2 diabetes mellitus without complications; E03.9 Hypothyroidism, unspecified; F41.9 Anxiety disorder, unspecified
CPT/HCPCS: 80048; 99282